=== PATIENT | male | born 1975 ===

== ENCOUNTER → 2020-12-02 | Outpatient (CLI) | payer BC ==
[~2020-12-02] MED LIST: LIDOCAINE/PRILOCAINE 2.5-2.5% KIT ONE
== END ==
LOC: WCC 12:42
PROVIDERS: ATTEND Internal Medicine Infectious Disease
DX: L97.511 Non-pressure chronic ulcer of other part of right foot limited to breakdown of skin (principal); M86.18 Other acute osteomyelitis, other site; G90.09 Other idiopathic peripheral autonomic neuropathy; N28.9 Disorder of kidney and ureter, unspecified